=== PATIENT | female | born 1995 | race Hispanic/Latino ===

== ENCOUNTER 2023-11-18 13:10 | Emergency (ER) | payer SELFPAY ==
[2023-11-18] MEDS ORDERED: Ibuprofen 800 MG TAB ONE (13:35)
== END 2023-11-18 13:43 | disposition home or self-care (01) ==
LOC: BURERS 13:10
DX: S67.192A Crushing injury of right middle finger, initial encounter (principal); S67.194A Crushing injury of right ring finger, initial encounter; S67.196A Crushing injury of right little finger, initial encounter; S60.00XA Contusion of unspecified finger without damage to nail, initial encounter; W23.0XXA Caught, crushed, jammed, or pinched between moving objects, initial encounter

== ENCOUNTER 2024-08-05 10:23 | Emergency (ER) | payer BC, SELFPAY ==
[2024-08-05] MEDS ORDERED: Lidocaine 1% (PF) 30 ML VIAL ONE (11:02)
[2024-08-05] MEDS ORDERED: Sulfameth/Trimethoprim DS 800-160mg TAB ONE (11:25)
== END 2024-08-05 11:38 | disposition home or self-care (01) ==
LOC: BURERS 10:23
DX: D17.1 Benign lipomatous neoplasm of skin and subcutaneous tissue of trunk (principal); L02.212 Cutaneous abscess of back [any part, except buttock and flank]
CPT/HCPCS: 10060